=== PATIENT | female | born 1975 | race American Indian/Alaskan Native ===

== ENCOUNTER 2020-09-17 22:12 | Emergency (ER) | payer OTHER ==
[2020-09-18 00:37] VITALS: BP 149/81
== END 2020-09-18 01:00 | disposition left against medical advice (07) ==
LOC: ED 22:12
DX: N93.9 Abnormal uterine and vaginal bleeding, unspecified (principal); R53.1 Weakness; Z53.21 Procedure and treatment not carried out due to patient leaving prior to being seen by health care provider